=== PATIENT | female | born 2000 | race Asian ===

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

== ENCOUNTER 2020-07-08 23:10 | Emergency (ER) | payer OTHER ==
[2020-07-08 23:27] VITALS: BP 117/70; PULSE 85; TEMP 99.4; BMI 23.0
== END 2020-07-09 00:55 | disposition home or self-care (01) ==
LOC: FER 23:10
DX: S00.83XA Contusion of other part of head, initial encounter (principal); S16.1XXA Strain of muscle, fascia and tendon at neck level, initial encounter; S93.432A Sprain of tibiofibular ligament of left ankle, initial encounter
CPT/HCPCS: 70150-TC-FY; 72050-TC-FY; 73610-TC-LT-FY; 99284-25

== ENCOUNTER 2021-07-25 20:42 | Emergency (ER) | payer OTHER ==
[2021-07-25 20:48] VITALS: BP 126/75; PULSE 96; TEMP 98.9; BMI 23.9
[2021-07-25] MEDS ORDERED: DIPHTH,PERTUSS(ACELL),TET 0.5 ML DISP.SYRIN IM ONE ×2 (21:01→21:08)
[2021-07-25] MEDS ORDERED: KETOROLAC TROMETHAMINE 30 MG/1 ML VIAL ONE (21:15)
[2021-07-25] MEDS ORDERED: KETOROLAC TROMETHAMINE 15 MG/ML VIAL IM ONE (21:20)
== END 2021-07-25 21:23 | disposition home or self-care (01) ==
LOC: FER 20:42
PROC: 3E0234Z Introduction of Serum, Toxoid and Vaccine into Muscle, Percutaneous Approach (ICD-10-PCS; principal; 2021-07-25)
PROC: 3E0233Z Introduction of Anti-inflammatory into Muscle, Percutaneous Approach (ICD-10-PCS; 2021-07-25)
DX: T24.212A Burn of second degree of left thigh, initial encounter (principal); X10.0XXA Contact with hot drinks, initial encounter
CPT/HCPCS: 90471; 90715; 96372; 99284-25

== ENCOUNTER 2022-03-04 19:18 | Emergency (ER) | payer OTHER ==
[2022-03-04 19:24] VITALS: BP 135/81; PULSE 107; RESP 19; TEMP 98.6; BMI 25.5
[2022-03-04] MEDS ORDERED: KETOROLAC TROMETHAMINE 30 MG/1 ML VIAL IM ONE (19:36)
[2022-03-04] MEDS ORDERED: diazePAM 5 MG TABLET PO ONE (19:36)
[2022-03-04] MEDS ORDERED: KETOROLAC TROMETHAMINE 30 MG/1 ML VIAL ONE (19:42)
[2022-03-04] MEDS ORDERED: diazePAM 5 MG TABLET ONE (19:42)
== END 2022-03-04 20:11 | disposition home or self-care (01) ==
LOC: JERFT 19:18
PROC: 3E0233Z Introduction of Anti-inflammatory into Muscle, Percutaneous Approach (ICD-10-PCS; principal; 2022-03-04)
DX: M54.12 Radiculopathy, cervical region (principal)
CPT/HCPCS: 99284-25

== ENCOUNTER 2023-01-22 00:24 | Emergency (ER) | payer OTHER ==
[2023-01-22 00:31] VITALS: BP 138/90; RESP 18; TEMP 98.3; BMI 25.7
[2023-01-22] MEDS ORDERED: methylPREDNISolone NA SUCC 125 MG/2 ML VIAL ONE (00:48)
[2023-01-22] MEDS ORDERED: EPINEPHrine/PF 1 MG/1 ML (1:1,000) AMPULE ONE ×2 (00:48→01:01)
[2023-01-22] MEDS ORDERED: FAMOTIDINE 20 MG/50 ML IVPB 20 MG/50 ML MG IVPB ONE ×2 (00:55→01:07)
[2023-01-22] MEDS ORDERED: EPINEPHrine 1:1,000 0.3 MG/0.3 ML SYR IM ONE ×2 (01:15→01:16)
[2023-01-22] MEDS ORDERED: methylPREDNISolone NA SUCC 125 MG/2 ML VIAL IVPUSH ONE (01:17)
[2023-01-22 04:46] VITALS: PULSE 98
== END 2023-01-22 04:46 | disposition home or self-care (01) ==
LOC: JER 00:24
PROC: 3E033GC Introduction of Other Therapeutic Substance into Peripheral Vein, Percutaneous Approach (ICD-10-PCS; principal; 2023-01-22)
PROC: 3E033GC Introduction of Other Therapeutic Substance into Peripheral Vein, Percutaneous Approach (ICD-10-PCS; 2023-01-22)
PROC: 3E033GC Introduction of Other Therapeutic Substance into Peripheral Vein, Percutaneous Approach (ICD-10-PCS; 2023-01-22)
PROC: 3E023GC Introduction of Other Therapeutic Substance into Muscle, Percutaneous Approach (ICD-10-PCS; 2023-01-22)
PROC: 3E023GC Introduction of Other Therapeutic Substance into Muscle, Percutaneous Approach (ICD-10-PCS; 2023-01-22)
DX: T78.04XA Anaphylactic reaction due to fruits and vegetables, initial encounter (principal); R07.0 Pain in throat; K13.0 Diseases of lips; R13.10 Dysphagia, unspecified; R06.02 Shortness of breath
CPT/HCPCS: 99284-25; J0171